=== PATIENT | female | born 1970 | race Caucasian/White ===

== ENCOUNTER 2019-01-14 13:01 | Outpatient (REF) | payer OTHER, SELFPAY ==
[2019-01-14 21:11] LABS: Anion Gap 8.9 mmol/L (3-11); BUN 15 mg/dL (7-18); CO2 29.1 mmol/L (21.0-32.0); CREATININE 1.04 mg/dL (0.55-1.02); Calcium 9.4 mg/dL (8.5-10.1); Chloride 107 mmol/L (98-107); Cholesterol 197 mg/dL (50-200); Estimated GFR 56.32 (mL/min/1.73m2); Glucose 98 mg/dL (70-100); HDL Cholesterol 62 mg/dL (40-60); LDL CHOLESTEROL 117 mg/dL (<100); Potassium 4.2 mmol/L (3.5-5.1); Sodium 145 mmol/L (136-145); TSH (W/Ref FT4) 4.19 uIU/mL (0.358-3.74); Triglyceride 83 mg/dL (30-150)
[2019-01-14 21:36] LABS: FREE T4 0.71 ng/dL (0.76-1.46)
== END 2019-01-14 13:21 ==
LOC: NCHCN 13:01
PROVIDERS: PCP Family Medicine; Visit Provider Family Medicine
DX: R73.01 Impaired fasting glucose (principal); Z13.220 Encounter for screening for lipoid disorders; E66.3 Overweight
CPT/HCPCS: 80048; 80061; 82306; 83721; 84439; 84443

== ENCOUNTER 2019-03-14 10:23 | Outpatient (REF) | payer OTHER, SELFPAY ==
[2019-03-14 22:41] LABS: TSH (W/Ref FT4) 0.09 uIU/mL (0.358-3.74)
[2019-03-14 23:00] LABS: FREE T4 1.09 ng/dL (0.76-1.46)
== END 2019-03-14 10:43 ==
LOC: NCHCN 10:23
PROVIDERS: PCP Family Medicine; Visit Provider Family Medicine
DX: E03.9 Hypothyroidism, unspecified (principal)
CPT/HCPCS: 84439; 84443

== ENCOUNTER 2019-05-19 10:28 | Outpatient (REF) | payer OTHER, SELFPAY ==
[2019-05-19 21:48] LABS: TSH (W/Ref FT4) 1.58 uIU/mL (0.36-3.74)
== END 2019-05-19 10:48 ==
LOC: NCHCN 10:28
PROVIDERS: PCP Family Medicine; Visit Provider Family Medicine
DX: E03.9 Hypothyroidism, unspecified (principal)
CPT/HCPCS: 84443

== ENCOUNTER 2020-02-10 19:18 | Outpatient (REF) | payer OTHER, SELFPAY ==
[2020-02-10 21:14] LABS: TSH 1.37 uIU/mL (0.36-3.74)
[2020-02-10 21:20] LABS: Hemoglobin A1C 5.7 % (3.8-5.6)
== END 2020-02-10 19:38 ==
LOC: NCHCN 19:18
PROVIDERS: PCP Family Medicine; Visit Provider Family Medicine
DX: R73.03 Prediabetes (principal); E03.9 Hypothyroidism, unspecified
CPT/HCPCS: 83036; 84443

== ENCOUNTER 2021-02-13 15:39 | Outpatient (REF) | payer BC, SELFPAY ==
[2021-02-13 14:57] LABS: Anion Gap 8.1 mmol/L (3-11); BUN 21 mg/dL (7-18); CO2 27.9 mmol/L (21.0-32.0); CREATININE 0.9 mg/dL (0.55-1.02); Calcium 9.2 mg/dL (8.5-10.1); Chloride 107 mmol/L (98-107); Glucose 95 mg/dL (74-106); Potassium 4.3 mmol/L (3.5-5.1); Sodium 143 mmol/L (136-145)
[2021-02-14 04:34] LABS: Vitamin D 25 Total 36.4 ng/mL (30-100)
== END 2021-02-13 15:40 | disposition home or self-care (01) ==
LOC: NCHCN 15:39
PROVIDERS: PCP Family Medicine; Visit Provider Family Medicine
DX: E03.9 Hypothyroidism, unspecified (principal); E55.9 Vitamin D deficiency, unspecified; N18.9 Chronic kidney disease, unspecified; M81.0 Age-related osteoporosis without current pathological fracture
CPT/HCPCS: 80048; 82306; 84443

== ENCOUNTER 2022-01-28 09:32 | Outpatient (REF) | payer BC, SELFPAY ==
--- NOTE | 2022-01-28 08:30 | PAPFT_PTH ---
PATIENT: Siri Stewart LOC: [facility]#:[id number] AGE/SX: 51/F ROOM: RE01/28/[address]: Darlin Zavala : 1970 BED: DIS: 01/28/2022 SPEC #: [id number] RECD: 01/28/22 17:23 STATUS: SOLEDAD REAdams #: [id number] SHELLEY: 01/28/22 08:[address]: Darlin Zavala DEPT: [facility] Cytology RECD BY: Sangeetha Julio Tissues: 1 - CX/ENDOCX FOR PAP SMEARS Procedures: PAP THIN PREP/[facility] Screening HPV DNA PROBE Comments: [id number] (HPV 16 & 18/45)
[2022-01-28 16:00] LABS: Calculated LDL 101 mg/dL (<100); Cholesterol 178 mg/dL (<200); HDL Cholesterol 64 mg/dL (40-60); TSH 1.13 uIU/mL (0.36-3.74); Triglyceride 65 mg/dL (<150)
[2022-01-28 17:07] LABS: Hemoglobin A1C 5.8 % (<5.7)
== END 2022-01-28 09:33 | disposition home or self-care (01) ==
LOC: NCHCN 09:32
PROVIDERS: PCP Family Medicine; Visit Provider Family Medicine
DX: E03.9 Hypothyroidism, unspecified (principal); R73.03 Prediabetes; Z00.00 Encounter for general adult medical examination without abnormal findings; Z12.4 Encounter for screening for malignant neoplasm of cervix; R87.810 Cervical high risk human papillomavirus (HPV) DNA test positive
CPT/HCPCS: 80061; 88142; 83036; 84443; 87624

== ENCOUNTER 2023-01-30 08:25 | Outpatient (REF) | payer BC, SELFPAY ==
--- NOTE | 2023-01-30 08:20 | PAPFT_PTH ---
PATIENT: Siri Stewart LOC: [facility]#:[id number] AGE/SX: 52/F ROOM: RE01/30/[address]: Darlin Zavala : 1970 BED: DIS: 01/30/2023 SPEC #: [id number] RECD: 01/30/23 15:46 STATUS: SOLEDAD REAdams #: [id number] SHELLEY: 01/30/23 08:[address]: Darlin Zavala DEPT: [facility] Cytology RECD BY: Sangeetha Julio Tissues: 1 - CX/ENDOCX FOR PAP SMEARS Procedures: PAP THIN PREP/[facility] Screening HPV DNA PROBE Comments: [id number]
[2023-01-30 14:26] LABS: Hemoglobin A1C 5.7 % (<5.7)
[2023-01-30 14:33] LABS: TSH 3.01 uIU/mL (0.36-3.74)
== END 2023-01-30 08:26 | disposition home or self-care (01) ==
LOC: NCHCN 08:25
PROVIDERS: PCP Family Medicine; Visit Provider Family Medicine
DX: R73.03 Prediabetes (principal); E03.9 Hypothyroidism, unspecified; Z12.4 Encounter for screening for malignant neoplasm of cervix; Z00.00 Encounter for general adult medical examination without abnormal findings; Z11.51 Encounter for screening for human papillomavirus (HPV)
CPT/HCPCS: 88142; 83036; 84443; 87624

== ENCOUNTER 2024-02-29 09:03 | Outpatient (REF) | payer OTHER, SELFPAY ==
[2024-02-29 14:59] LABS: TSH 1.94 uIU/Ml (0.36-3.74)
== END 2024-02-29 09:04 | disposition home or self-care (01) ==
LOC: NCHCN 09:03
PROVIDERS: PCP Family Medicine; Visit Provider Family Medicine
DX: E03.9 Hypothyroidism, unspecified (principal)
CPT/HCPCS: 84443